=== PATIENT | female | born 1945 | race Caucasian/White ===

== ENCOUNTER → 2016-08-25 | Outpatient (CLI) | payer OTHER, BC ==
[2016-08-25 14:24] LABS: ALT/SGPT 30 U/L (12-78); AST/SGOT 14 U/L (15-37); BLOOD UREA NITROGEN 16 mg/dl (7-18); BUN/CREATININE RATIO 14.7 (10-20); CALCIUM 9.2 mg/dl (8.5-10.1); CARBON DIOXIDE 30 mmol/L (21-32); CHLORIDE 103 mmol/L (98-107); GLUCOSE 142 mg/dl (70-99); POTASSIUM 4.2 mmol/L (3.5-5.1); SODIUM 139 mmol/L (136-145)
[2016-08-25 14:27] LABS: CHOLESTEROL 124 mg/dl (0-200); CHOLESTEROL/HDL RATIO 3.2; HDL CHOLESTEROL 39 mg/dl; TRIGLYCERIDES 173 mg/dl (0-150); VERY LOW DENSITY LIPOPROT CALC 35 mg/dl
== END ==
LOC: C.LABMFLN 07:04
PROVIDERS: ATTEND Family Medicine
DX: Z00.00 Encounter for general adult medical examination without abnormal findings (principal); E11.9 Type 2 diabetes mellitus without complications; I10 Essential (primary) hypertension; F32.9 Major depressive disorder, single episode, unspecified; E78.00 Pure hypercholesterolemia, unspecified

== ENCOUNTER → 2016-09-01 | Outpatient (CLI) | payer OTHER, BC ==
[2016-09-02 06:30] LABS: ESTIMATED AVERAGE GLUCOSE 137 mg/dl; HA1C FLAG Normal (Normal)
== END | disposition home or self-care (01) ==
LOC: C.LABMFLN 11:55
PROVIDERS: ATTEND Family Medicine
DX: E11.9 Type 2 diabetes mellitus without complications (principal)

== ENCOUNTER → 2016-09-01 | Outpatient (CLI) | payer OTHER, BC | END | disposition home or self-care (01) | LOC: C.PATHSPEC 13:55 | PROVIDERS: ATTEND Family Medicine | DX: L57.0 Actinic keratosis (principal); D22.9 Melanocytic nevi, unspecified ==

== ENCOUNTER → 2016-11-03 | Outpatient (CLI) | payer OTHER, BC ==
[2016-11-03 13:32] LABS: URINE APPEARANCE CLOUDY (CLEAR); URINE BILIRUBIN NEG (NEG); URINE COLOR YELLOW; URINE EPITHELIAL CELL AUTO >30 /lpf (0-5); URINE NITRITE NEG (NEG); URINE PH 6.5 (4.5-7.5); URINE SPECIFIC GRAVITY 1.019 (1.000-1.030); UROBILINOGEN NEG (NEG); ZZUR CULT IF INDIC CLEAN CATCH YES
[2016-11-03 13:52] LABS: MANUAL MICROSCOPIC REQUIRED? NO; REVIEW REQ? YES
== END | disposition home or self-care (01) ==
LOC: C.LABMFLN 09:05
PROVIDERS: ATTEND Family Medicine
DX: N30.00 Acute cystitis without hematuria (principal)

== ENCOUNTER → 2016-11-19 | Outpatient (CLI) | payer OTHER, BC ==
[2016-11-19 13:20] LABS: BASO % 1.3 %; BASO ABS # 0.08 K/uL (0-0.2); COMPLETE YES; EOS % 4.1 %; HEMATOCRIT 38.9 % (37-47); IG% 0.2 %; LYMPH % 41.8 %; LYMPH ABS # 2.55 K/uL (1.2-3.4); MEAN CORPUSCULAR HEMOGLOBIN 30.5 pg (25-34); MEAN CORPUSCULAR HGB CONC 33.2 g/dl (32-36); MEAN PLATELET VOLUME 11.7 fL (7.4-10.4); MONO % 6.4 %; NEUT % 46.2 %; PLATELET COUNT 268 K/uL (130-400); RED BLOOD COUNT 4.23 M/uL (4.2-5.4)
[2016-11-19 14:10] LABS: TOTAL IRON BINDING CAPACITY 412 mcg/dl (250-450)
== END | disposition home or self-care (01) ==
LOC: C.LABMFLN 07:47
PROVIDERS: ATTEND Family Medicine
DX: D64.9 Anemia, unspecified (principal)

== ENCOUNTER → 2017-07-05 | Outpatient (CLI) | payer OTHER, BC | END | disposition home or self-care (01) | LOC: C.LABMFLN 09:03 | PROVIDERS: ATTEND Family Medicine | DX: K52.9 Noninfective gastroenteritis and colitis, unspecified (principal) ==

== ENCOUNTER → 2017-08-04 | Outpatient (CLI) | payer OTHER, BC ==
[~2017-08-04] MED LIST: GADAVIST IV PRN; PATIENT'S ALLERGY INFO NEEDS ENTERED SCH
--- NOTE | 2017-08-04 09:54 | DIAGNOSTIC IMAGING REPORT ---
ABDOMEN COMBO CLINICAL HISTORY: 72 years-old Female presenting with COMPLEX LEFT RENAL CYST, history of ovarian cancer. TECHNIQUE: Multisequence, multiplanar MR imaging of the abdomen was performed before and after the administration of intravenous contrast. IV contrast: 8 mL of Gadavist. COMPARISON: None. FINDINGS: Localizer images: Unremarkable. Lung bases: Left basilar opacity. Normal heart size. Left pleural effusion. Liver: Normal morphology. No liver lesion. The portal vein is abutted by lymphadenopathy but not narrowed. Similarly, the common and proper hepatic vein is abutted by lymphadenopathy though not narrowed. Biliary: No intrahepatic or extrahepatic biliary ductal dilatation. Normal gallbladder. Pancreas: Normal. No pancreatic ductal dilatation. Pancreatic parenchyma is normal although fluid surrounds both the ventral and dorsal aspects of the pancreatic tail. Spleen: Normal. Adrenal glands: Normal. Kidneys and ureters: Large mass expands the lower pole of the left kidney. Overall left renal enlargement. The mass measures 7.3 x 6.6 x 8.3 cm and heterogeneously enhances. This does not appear to contain macroscopic fat. No gross evidence of invasion through the perinephric fascia. There is severe narrowing of the left renal vein secondary to lymphadenopathy. There is no gross evidence of intravascular invasion by the left renal mass. The left renal artery remains patent though slightly diminutive in caliber though this may be an artifact related to elevated venous pressure. No hydronephrosis. The right kidney is normal. Pelvic organs: Partially visualized uterus is normal appearing and atrophic, expected for the patient's age. The left ovary is normal appearing. The right ovary is not visualized, possibly surgically absent.. Bowel: Diverticulosis of the sigmoid colon. No bowel obstruction. Peritoneal cavity: Trace fluid in the left paracolic gutter. Small amount of ascites also noted in the pelvis. Extensive retroperitoneal fat infiltration and fluid. This is noted to the greatest degree along the descending duodenum. Lymph nodes: Numerous pathologically enlarged retroperitoneal lymph nodes noted in the left periaortic, aortocaval, and pericaval regions. Lymphadenopathy extends into the helena hepatis and portacaval regions. The degree of lymphadenopathy results in severe narrowing and possible obstruction of the left renal vein. Vasculature: Aorta and IVC patent and normal in caliber. Abdominal wall: Nonspecific edema in the lumbar region. Musculoskeletal: Degenerative changes of the spine. No abnormal bone marrow signal intensity. IMPRESSION: 1. Findings highly suspicious for renal cell carcinoma of the left kidney, measuring 8.3 cm. No gross evidence of vascular or perinephric invasion. 2. Expansion of the left kidney is likely secondary to severe narrowing or occlusion of the left renal vein as a consequence of mass effect from lymphadenopathy. 3. Significant retroperitoneal and upper abdominal lymphadenopathy. This may relate to renal cell carcinoma, although the patient's second primary malignancy could also be and etiology. 4. Possibly surgically absent right ovary. 5. Small amount of ascites. 6. Trace amount of retroperitoneal fluid is nonspecific. This could be reactive secondary to the presence of lymphadenopathy. Correlate with lipase to exclude pancreatitis. Electronically signed by: Rian Diaz M.D. 08/04/2017 9:53 AM Dictated Date/Time: 08/04/2017 9:36 AM
== END | disposition home or self-care (01) ==
LOC: C.MRI 08:12
PROVIDERS: ATTEND Family Medicine
DX: N28.1 Cyst of kidney, acquired (principal); R59.1 Generalized enlarged lymph nodes